=== PATIENT | female | born 1975 | race Caucasian/White ===

== ENCOUNTER 2018-11-10 11:41 | Emergency (ER) | payer OTHER ==
[~2018-11-10] VITALS: Ht 165.1 cm; Wt 85.3 kg
[2018-11-10 11:46] VITALS: BP 144/101
--- NOTE | 2018-11-10 11:50 | NUR ---
BACK TO LOBBY WITH SON TO WAIT FOR AVAILABLE ROOM FOR MD SMART
--- NOTE | 2018-11-10 13:06 | NUR ---
Patient ambulated to bed 2 with family. RN evaluating patient at bedside.
--- NOTE | 2018-11-10 13:28 | NUR ---
Dr. Chirinos evaluating patient at bedside.
--- NOTE | 2018-11-10 13:30 | NUR ---
BIB SON. AAO X4 RIGHT GREAT TOE INGROWN NAIL AND 2ND TOE POSSIBLE PARONYCHIA S/P VISITING A NAIL SPA SALOON. +CMS TO RIGHT FOOT, PT AMBULATED WITH STEADY GAIT. ER TO EVALUATE PT.
[2018-11-10 14:09] VITALS: BP 132/99
--- NOTE | 2018-11-10 14:10 | NUR ---
Patient discharged with v/s stable. Written and verbal after care instructions given and explained. Patient alert, oriented and verbalized understanding of instructions. Ambulatory with steady gait. All questions addressed prior to discharge. ID band removed. Patient advised to follow up with PMD. Rx of KEFLEX, NAPROSYN given. Patient educated on indication of medication including possible reaction and side effects. Opportunity to ask questions provided and answered.
== END 2018-11-10 14:10 | disposition home or self-care (01) ==
LOC: MED 11:41
DX: L60.0 Ingrowing nail (principal); I10 Essential (primary) hypertension
CPT/HCPCS: 99283